=== PATIENT | female | born 1960 | race Caucasian/White ===

== ENCOUNTER 2020-11-01 09:05 | Inpatient (IN) | payer OTHER ==
[~2020-11-01] VITALS: Ht 162.6 cm; Wt 85.0 kg
[2020-11-01] VITALS (7 sets, daily range): BP systolic 114–124; BP diastolic 62–72
[~2020-11-01 09:05] MED LIST: ASA81BEC PO; ATORVASTATIN CA10 MG PO; CARVEDILOL25 MG PO; CLOPIDOGREL75 MG PO; DEXCOM G61 EAC2 SUBQ; FISH OIL 1,0001 EAC9 PO; FLONASE 0.05%50 MCG NARES; GABAPENTIN600 M1 PO; HUMALOG MI100 UNIT/6 SUBQ; LASIX 40 MG TAB40 MG PO; LISINOPRIL10 MG PO; MELATONIN10 M1 PO; METFORMIN HCL500 M3 PO; MIRALAX119 GM PO; MULTI VITAMIN1 EACH PO; OCUVITE TABLET1 EAC1 PO; OXYBUTYNIN 5 MG5 M2 PO; OXYCODON-ACETA1 EAC1 PO; POTASSIUM CHLO20 ME2 PO; SENNOSIDES-DOC1 EACH PO; ZOFRAN4 MG PO
[2020-11-01 11:29] LABS: CALCIUM 10.3 mg/dL (8.5-10.1); POTASSIUM 5.3 mmol/L (3.5-5.1)
--- NOTE | 2020-11-01 20:39 | NUR ---
Admitted from OR, s/p R foot and ankle contracture release. Admission assessment, history and education done. On room air. Vital signs stable. On carb controlled diet; tolerating well; no nausea, no vomiting and no abdominal pain noted. On MS, not on telemetry; no complains and signs of chest pain, crushing sensation and heaviness. Assisted in ADLs. On blood sugar monitoring, taken and recorded accordingly, pt has implanted blood sugar monitoring machine- informed her that we still have to do finger stick, will obtain orders from physician if able to use her own machine; insulin not included in inpatient meds- Dr Cano informed. With SL at R FA. Dressing/cast at R foot- C/D/I; NVS intact; kept elevated; SCDs on, ice pack in place. Med rec done- Dr Cano informed to review and aware re: consult for med management. Complained of pain, due PRN pain meds given as prescribed. To continue monitoring patient.
[2020-11-02 03:15] VITALS: BP 140/76
--- NOTE | 2020-11-02 04:19 | NUR ---
ASSUMED PT CARE AT 1900.PT C/O PAIN ON HER R FOOT,MANAGED WITH MED.CAST TO HER R FOOT C/D/I.PT WAS UPSET AT [facility] SHE DID NOT GET HER INSULIN AT THE TIME SHE CALLED OUT FOR IT.PT WAS NOTIFIED THAT THE NURSE WAS WITH ANOTHER PT AT THAT TIME.R FOOT ELEVATED WITH A PILLOW.CALL LIGHT WITHIN REACH.
[2020-11-02 05:24] LABS: HEMATOCRIT 30.1 % (37.0-47.0); HEMOGLOBIN 9.8 gm/dL (12.0-15.0)
[2020-11-02 05:35] LABS: POTASSIUM 5.2 mmol/L (3.5-5.1)
[2020-11-02 08:00] VITALS: BP 121/58
--- NOTE | 2020-11-02 13:17 | NUR ---
ASSESSMENT: CM REVIEWED CHART AND SPOKE WITH PATIENT. PT WAS ADMITTED DUE TO RIGHT ACHILLES LENGTHENING. PT REPORTS LIVING IN A SMALL COTTAGE HOME ALONE. PT REPORTS ONE STEP TO ENTER AND NO STEPS SHE HAS TO USE INSIDE. PT REPORTS HER HOME IS VERY SMALL AND EASY FOR HER TO ACCESS EVERYTHING. PT STATES SHE HAS A FOUR WHEEL WALKER AT HOME AND A STOOL RISER. PT REPORTS HAVING A SHOWER CHAIR AND GRAB BAR. PT STATES SHE IS IN SERVICE WITH [facility] ([phone]). CM NOTIFIED THEM OF PTS ADMISSION AND SENT REFERRAL TO THEM FAX: [phone]. PT REPORTS SHE HAS BEEN TO SNF IN THE PAST IN [place] AT [facility] SHE REPORTS. CM WILL CONTINUE TO FOLLOW. PT IS TO WORK WITH THERAPIES.
--- NOTE | 2020-11-02 14:56 | NUR ---
ASSUMED PT CARE THIS AM. PT VSS, A&OX4. PT COMPLAINS OF PAIN IN THE RIGHT FOOT. FOOT IS ELEVATED, RESPONDING WELL TO PAIN MEDS GIVEN PER EMAR. IV PATENT. MEDS TAKEN WELL THIS AM. PT CALLS APPROPRIATELY WHEN NEEDED. FALL PRECAUTIONS ARE IN PLACE.
--- NOTE | 2020-11-02 16:08 | NUR ---
PATIENT REPORTED A PREVIOUS ADVERSE DRUG REACTION TO FENTANYL, WHICH CAUSED HER TO STOP BREATHING. REPORTED THIS TO THE PHYSICIAN, AND ORDER FOR MEDICATION DISCONTINUED. ADDED TO PATIENT DRUG ALLERGIES.
[2020-11-02 16:15] VITALS: BP 138/58
[2020-11-02 19:24] VITALS: BP 199/94
[2020-11-03 00:31] VITALS: BP 170/81
[2020-11-03 01:06] LABS: GLYCOHEMOGLOBIN (HGB A1C) 6.6 % (4.8-5.6)
[2020-11-03 03:40] VITALS: BP 193/94
[2020-11-03 04:19] VITALS: BP 185/85
--- NOTE | 2020-11-03 04:21 | NUR ---
PT C/O NAUSEA AT START OF SHIFT.PT HAD EMESIS X1 AT THE TIME,PRN ZOFRAN GIVEN EFFCETIVE.AT APPROX 0315 PT STARTED HAVING EMESIS AGAIN WAS A LITTLE REDDISH IN COLOR,LESS THAT 100CC LOOKS LIKE SHE ATE JELLO.PT STATED THAT SINCE SHE HAD [employer] YESTERDAY SHE HAS BEEN HAVING UPSET STOMACH.PT'S VS OBTAINED,BP WAS ELEVATED.CLINICAL RESEARCH ASSOCIATE ON DUTY NOTIFIED ORDER NOTED FOR HYDRALAZINE AND CBC.PRN ZOFRAN GIVEN AGAIN.PT HAD AN EPISODE OF INCONTINENCE,CELINE CARE WITH BED CHANGE DONE.PT RESTING ON HER BED AT THIS TIME.CAST ON HER L FOOT INTACT,ELEVATED WITH A PILLOW.PT'S BG AT HS WAS 140,PT REF HER INSULIN.CALL LIGHT WITHIIN REACH.
[2020-11-03 05:38] LABS: HEMATOCRIT 30.8 % (37.0-47.0); HEMOGLOBIN 10.3 gm/dL (12.0-15.0); MCH 28.7 pg (26.0-34.0); MCHC 33.4 g/dL (28.0-37.0); MCV 86.2 fL (80.0-100.0); RBC 3.58 mil/uL (4.20-5.00); RDW 13.8 % (10.5-14.5); WBC 6.6 thou/uL (4.0-11.0)
--- NOTE | 2020-11-03 07:29 | NUR ---
ASSUMED CARE OF PATIENT SHE IS SLEEPING NO S/S PAIN OR RESP DISTRESS.
[2020-11-03 07:40] VITALS: BP 179/84
--- NOTE | 2020-11-03 16:03 | NUR ---
ON-GOING ASSESSMENT: CM REVIEWED CHART AND DISCUSSED WITH PATIENT RECOMMENDATION FOR SNF. 5N STATING PT IS MORE APPROPRIATE FOR SNF. CM DISCUSSED DIFFERENT SNF OPTIONS WITH PATIENT AND IF SHE IS WANTING ONE CLOSER TO HOME OR [place] OR NEAR THE HOSPITAL. PT STATES SHE DOES NOT REALLY HAVE A PREFERENCE AND WANTED TO ASK HER BROTHER. CM SPOKE WITH PATIENT BROTHER WHO REPORTS HE WOULD RATHER HAVE HERE SOMEWHERE IN CLOSE PROXIMETY TO THE HOSPITAL SO SHE CAN EASILY MAKE HER FOLLOW UP APPOINTMENTS. PT HAS NO PREFERENCE AND STATED SHE WANTED TO TRY [facility] SINCE IT IS ACROSS THE [address]RE[address]. KARLI SENT REFERRAL AND SPOKE WITH [facility] WHO REPORTS THEY WILL NOT HAVE A BED UNTIL FRIDAY. KARLI DISCUSSED THIS WITH PATIENT AND SHE REQUEST A REFERRAL TO [facility]. [facility] REVIEWING. CM FAXED NEGATIVE COVID TEST.
--- NOTE | 2020-11-03 16:16 | NUR ---
ON-GOING ASSESSMENT: [facility] KANDY LIAM[facility]LIN STATING THEY CAN ACCEPT PATIENT. DISCHARGE SUMMARY IS PREPPED FOR TOMORROW DATE 01/02/21. CM NOTIFIED [facility] AND FAXED D/C SUMMARY AND ORDERS. IF PATIENT IS STABLE TO LEAVE TOMORROW CONTACT THE [facility] LUIS AT [phone] TO FACILITATE THE DISCHAREG AND SHE WILL ARRANGE TRANSPORTATION. CONFIRM THEY DO NOT NEED NEW ORDERS. CHART COPY WILL NEED TO BE SENT WITH PATIENT. CM ALREADY FAXED NEGATIVE COVID RESULT AND NOTIFIED PATIENT OF LIKELY DISCHARGE TOMORROW TO [facility]. CONTACT PATIENTS BROTHER VLADISLAV TO NOTIFY HIM AT [phone].
[2020-11-03 16:30] VITALS: BP 126/66
[2020-11-03 20:10] VITALS: BP 127/60
--- NOTE | 2020-11-04 01:09 | NUR ---
PT WAS IN A BETTER MOOD AT START OF SHIFT.PT DENIED PAIN,N/V.CAST TO HER R FOOT STILL INTACT.PT ABLE TO WIGGLE TOESON HER FOOT.FOOT ELVATED WITH A PILLOW,ICE PACK IN PLACE.PT REFUSED TO TAKE HER HS INSULIN FOR FEAR OF LOW BG. PT LOOKING FORWARD TO BE DC'D LATER IN THE DAY.CALL LIGHT WITHIN REACH.
[2020-11-04 03:20] VITALS: BP 152/73
[2020-11-04 03:35] VITALS: BP 136/71
[2020-11-04 09:37] VITALS: BP 178/91
[2020-11-04 09:49] LABS: ABSOLUTE NEUTROPHILS 3.7 thou/uL (1.4-8.2); BASOPHILS 1.2 % (0.0-2.0); HEMATOCRIT 31.6 % (37.0-47.0); HEMOGLOBIN 10.4 gm/dL (12.0-15.0); LYMPHOCYTES 17.7 % (24.0-44.0); MCH 28.6 pg (26.0-34.0); MCV 86.8 fL (80.0-100.0); PLATELET COUNT 219 thou/uL (150-400); POLYS 70.1 % (36.0-66.0); RBC 3.64 mil/uL (4.20-5.00); RDW 13.7 % (10.5-14.5); WBC 5.2 thou/uL (4.0-11.0)
[2020-11-04 10:07] LABS: ALBUMIN 3.2 g/dL (3.4-5.0); CALCIUM 9.2 mg/dL (8.5-10.1); CREATININE 0.8 mg/dL (0.6-1.0); MAGNESIUM 1.8 mg/dL (1.8-2.4); TOTAL BILIRUBIN 0.4 mg/dL (0.2-1.0); TOTAL PROTEIN 6.8 g/dL (6.4-8.2)
--- NOTE | 2020-11-04 12:34 | NUR ---
clarissa notified by bedside nurse that bop say pt has to much going to accept pt today. clarissa called sam [phone] " don spoke with nurse receiving report and said had temp 99 and no bm in 5 day. if cont to have bm and to temp will take her tomorrow"/sam. call sam to set up dc on friday and notify brother of dc.
[2020-11-04 18:29] VITALS: BP 164/77
[2020-11-04 20:05] VITALS: BP 120/66
--- NOTE | 2020-11-05 02:32 | NUR ---
ASSESSED AT START OF SHIFT. PT A&OX4. DENIES PAIN ON ASSESSMENT. RT FOOT HARD CAST INTACT. BSG CHECKED AND INSULIN GIVEN. NIGHT TIME SNACK PROVIDED. PT HAD A HUGE BM DURING THE DAY. AFEBRILE. NIGHT MEDS GIVEN AND PT BRENDA IT WELL. FALL PREC IN PLACE AND CALL LIGHT AT REACH WILL CONT TO MONITOR.
[2020-11-05 04:52] VITALS: BP 153/74
[2020-11-05 05:50] LABS: URINE BILIRUBIN NEGATIVE (Negative); URINE BLOOD NEGATIVE (Negative); URINE CLARITY CLEAR; URINE COLOR YELLOW; URINE GLUCOSE-RANDOM* NEGATIVE (Negative); URINE KETONES NEGATIVE (Negative); URINE LEUKOCYTES-REFLEX 2+ (Negative); URINE NITRITE-REFLEX NEGATIVE (Negative); URINE PROTEIN (DIPSTICK) NEGATIVE (Negative); URINE UROBILINOGEN 0.2 E.U./dl (0.2-1.0)
[2020-11-05 06:01] LABS: BACTERIA-REFLEX None Seen /HPF (None Seen); CASTS None Seen /LPF (None Seen); SQUAMOUS 0-3 Few /LPF (0-3); URINE WBC-REFLEX 6-15 Few /HPF (0-5)
[2020-11-05 06:02] LABS: CALCIUM OXALATE 0-3 Few /LPF (None Seen); URINE RBC 0-2 Rare /HPF (0-2)
[2020-11-05 07:25] VITALS: BP 156/81
--- NOTE | 2020-11-05 12:37 | NUR ---
PT CARE ASSUMED AT 0700. A&Ox4. PT HAD VERY LARGE BM. HARD CAST ON R.LEG. CIRCULATION PRESENT ON TOES. IV ABX STARTED FOR UTI. ACHS WITH LOW MODERATE SLIDING SCALE. MEDICATION LIST UPDATED WITH DR. BARROW WITH CURRENT MEDICATION LIST PATIENT PROVIDED TODAY. PT DISCHARGE ON HOLD UNTIL URINE CULTURE COMES BACK TO CHANGE FROM IV ABX TO PO. CLEARED FROM ORTHO STANDPOINT TO DC. PT CONTINUES TO STAY AFEBRILE AND NO EMESIS PRESENT. BATH GIVEN. NO COMPLAINTS OF PAIN JUST "DISCOMFORT". FALL PROTOCOL IN PLACE. CALL LIGHT IN REACH. WILL CONTINUE TO MONITOR.
[2020-11-05 16:15] VITALS: BP 173/87
[2020-11-05 20:00] VITALS: BP 95/51
[2020-11-05 23:25] LABS: HEMATOCRIT 30.5 % (37.0-47.0); HEMOGLOBIN 10.1 gm/dL (12.0-15.0); MCH 28.9 pg (26.0-34.0); MCHC 33.1 g/dL (28.0-37.0); MCV 87.2 fL (80.0-100.0); RBC 3.5 mil/uL (4.20-5.00); RDW 14.2 % (10.5-14.5); WBC 4.8 thou/uL (4.0-11.0)
[2020-11-05 23:44] LABS: ALBUMIN 3.1 g/dL (3.4-5.0); CALCIUM 9.2 mg/dL (8.5-10.1); CREATININE 0.9 mg/dL (0.6-1.0); POTASSIUM 3.6 mmol/L (3.5-5.1); TOTAL BILIRUBIN 0.2 mg/dL (0.2-1.0); TOTAL PROTEIN 6.4 g/dL (6.4-8.2)
[2020-11-06] VITALS (7 sets, daily range): BP systolic 127–209; BP diastolic 59–96
--- NOTE | 2020-11-06 01:16 | NUR ---
PLANING MACHINE OPERATOR CALLED FOR DECREASED LOC. SEE PLANING MACHINE OPERATOR FLOWSHEET.
--- NOTE | 2020-11-06 02:28 | NUR ---
UPON START OF SHIFT, PT NOTED TO BE AOX4, DENYING PAIN AND SOB AT REST ON ROOM AIR. PT NOTIFIED STAFF FOR TOILETING, PT VOIDED PER BEDPAN. PT NOTED TO ASSIST WITH SHIFTING. PT TOLERATING PO INTAKE WITHOUT ISSUE, NO NAUSEA OR EMESIS NOTED. APPROX 2300, ENTERED PT ROOM, PT NOT RESPONDING TO VERBAL STIMULI. PT NOT RESPONDING TO TACTILE STIMULATION OR STERNAL RUBBING. RAPID RESPONSE INTIATED. PT OPENING EYES WITH FIXED GAZE, INABILITY TO TRACK OR FOLLOW COMMANDS. NIH OF 21. NARCAN GIVEN. LABS DRAWN, CT COMPLETED. PT BACK TO UNIT APPROX 2354, NIH OF 14. NOTIFIED PT BROTHER, DISCUSSED PT CURRENT HEALTH STATUS AND PLAN OF CARE. PT NOTABLY TEARFUL. PROVIDED EMOTIONAL SUPPORT, PT RECEPTIVE AND CONSOLABLE. AT 0019, PT TRANSFERRED TO ROOM 201, REPORT GIVEN TO DESHAWN MUÑOZ AT BEDSIDE.
--- NOTE | 2020-11-06 08:09 | NUR ---
TRANSFER FROM 4S TO UNIT AT 0019; ALERT & ORIENTED WITH SOME SLURRED SPEECH; NIH SCORE 4; BP ELEVATED WITH PRN MED ADMINISTERED; WILL CONTINUE TO MONITOR AND FOLLOW POC.
--- NOTE | 2020-11-06 13:25 | NUR ---
TENATIVE PLAN FOR DISCHARGE TODAY HOWEVER CONSULT FOR NEUROLOGY DUE TO AMS. UPDATED [facility] AND PATIENT. SHE REPORTS HER BROTHER IS AWARE.
--- NOTE | 2020-11-06 18:02 | NUR ---
PT HAS BEEN IRRITATED AND ANXIOUS THIS SHIFT. STATING SHE WANTS TO JUST GET OUT OF HERE AND THAT NO ONE HAS EXPLAIN ANYTHING TO HER AND THAT SHE VOICES CONCERNS SHE DID NOT SIGN CONSENT FOR FOR HER PROCEDURE ON HER R FOOT. THIS NURSE AND DR MCNAMARA EXPLAINED ALL MEDICATIONS TO PATIENT ALONG WITH PLAN AND PT WAS ABLE TO VISULIZE CONSENT FORM SHE SIGNED PREOP. PT HAS BEEN MORE COOPERATIVE AND PLEASANT THIS EVENING. NO NEW SIGNS OF WEAKNESS OR CONFUSES AT THIS TIME NIH SCORE 3 WHICH IS PTS BASE LINE. NO CONERNS AT THIS TIME FROM PT. WILL CONT TO MONITOR, CALL LIGHT IN REACH AND REFRESHMENTS PROVIDED.
--- NOTE | 2020-11-07 04:29 | NUR ---
ASSUMED CARE OF THE PATIENT AT CHANGE OF SHIFT; SR ON THE MONITOR; PATIENT ALERT AND LAYING BED; IRRITABLE, DROWSY, AND ANXIOUS AT TIMES; SPENT EXTRA TIME WITH PATIENT WITH GOOD RESULTS; RT LE HARD CAST IN PLACE AND LEG ELEVATED WITH PILLOW AND BED; RT FA IV INFILTRATED AND A NEW ONE WAS SUCCESSFULLY PLACED ABOVE PREVIOUS ONE FOR IV ABX ADMINISTRATION; RA WITH 02 SATS WITHIN NORMAL REFERENCE RANGE; BG ACHS WITH MODERATE DOSE SLIDING SCALE WITH INSULIN ADMINISTERED FOR 2100 HR; PLAN IS FOR PATIENT TO D/C TO SNF/REHAB TODAY; WILL CONTINUE TO MONITOR AND FOLLOW POC.
[2020-11-07 04:45] VITALS: BP 132/64
[2020-11-07 07:25] VITALS: BP 145/66
[2020-11-07 11:06] VITALS: BP 143/64
--- NOTE | 2020-11-07 13:20 | O ---
[facility] [place] [address] OPERATIVE REPORT Name: GREG TORREZ Room #: 201-P [facility] IN M.R.#: [id number] Admission: 11/01/20 Attend Phys: Cristian Hartman MD Discharge: Date of : 64 Report #: [id number] THIS REPORT FOR: cc: FAM - No family physician/PCP FAM - No family physician/PCP Cristian Hartman MD ~ DATE OF SERVICE: 11/01/2020 PREOPERATIVE DIAGNOSIS: Right Achilles and foot contractures. POSTOPERATIVE DIAGNOSIS: Right Achilles and foot contractures. PROCEDURES: 1. Right Achilles tendon percutaneous lengthening. 2. Right posterior tibialis tendon release. 3. Right flexor digitorum longus tendon release. SURGEON: Dr. Cristian Hartman. LINING STRAP CLOSER: Polly Freeman. ANESTHESIA: General. ESTIMATED BLOOD LOSS: Minimal. DRAINS: No drains. TOURNIQUET TIME: 20 minutes. DESCRIPTION OF PROCEDURE: The patient brought to the operating room where she was placed under general anesthesia. Once under adequate general anesthesia, her right lower extremity was prepped and draped in sterile manner. The extremity was elevated, exsanguinated, tourniquet placed 300 mmHg. A step cut Achilles tendon lengthening was made with a 15 blade percutaneously, first directed laterally and then directed medially and then subsequently directed laterally once again in 1.5 cm increments. Once released, the ankle contracture did release considerably. However, there was still an inversion and flexion contracture. This was then released through a small 2-cm incision. Dissection was carried down to the posterior tibial tendon sheath. The posterior tibial tendon was then incised with tenotomy scissors, releasing this. The floor of the posterior tibial tendon sheath was then opened exposing the flexor digitorum longus tendon. This was released as well completing the hindfoot release. We were able then to reduce the ankle to a neutral alignment once complete. The wounds were then irrigated copiously and closed with 2-0 Vicryl in the subcutaneous tissues and emily were used for the skin. The wounds were [address] [address] OPERATIVE REPORT Name: GREG TORREZ Room #: 201-P [facility] IN M.R.#: [id number] Admission: 11/01/20 Attend Phys: Cristian Hartman MD Discharge: Date of : 64 Report #: [id number] dressed with Xeroform, 4 x 4s, and sterile soft compressive dressing was placed. Tourniquet was let down at approximately 20 minutes. Toes were pink and warm with good capillary refill. There were no complications from the procedure. The patient tolerated the procedure well and was taken to recovery room without incident. <ELECTRONICALLY SIGNED> By: Cristain Hartman MD 11/07/20 1320 1217 1229 Cristian Hartman MD /nt
--- NOTE | 2020-11-07 14:30 | NUR ---
PT REFUSES ABX AND SAM D/T HER THINKING SHE WOULD BE DISCHARGED AND AT SKILLED FACILITY. COVID TEST STILL PRENDING AND HOLDING UP DISCHARGE. PT HAS HAS NO BEHAVIORS TODAY AND HAS BEEN COOPERATIVE WITH [facility]JOR[facility] OF CARES. PT STABLE AT THIS TIME AND NO NEW ISSUES. CALL LIGHT IN REACH AND PT HAS NO CONCERNS BESIDES DISCHARGE
[2020-11-07 15:42] VITALS: BP 125/61
--- NOTE | 2020-11-07 16:40 | NUR ---
FAXED CLINICAL UPDATE TO [facility] OF OP RECEIVED CONFIRMATION AND LEFT MSG WITH ARAMIS IN ADM.
--- NOTE | 2020-11-07 16:55 | NUR ---
Tenative plan to discharge to [facility] skilled today. Patient covid test negative. sp with Krystian they are at [facility]. Updated phys. Updated patient. She has apt with Dr Hager tomorrow for f/u post apt. Called and sp with Kathy at [place] office to determine if can see at hospical. Kathy reports they are booked and wants to change apt. Placed Kathy on speaker phone in patient room. New apt for 11/09/20 at 2:45 [address] [facility]. Gave info to RN to place in dc instructions.
[2020-11-07 20:15] VITALS: BP 156/67
--- NOTE | 2020-11-08 05:05 | NUR ---
ASSUMED CARE OF THE PATIENT AT CHANGE OF SHIFT; ALERT/ORIENTED AND TALKATIVE; SR ON THE MONITOR; BG ACHS WITH MODERATE DOSE SS REQUIRED COVERAGE; PT CONTINUES TO RECEIVE IV ABX; PLAN IS FOR PATIENT TO D/C TO [facility] BED/ROOM/COVID TEST RESULTED (SEE REVIEW); WILL CONTINUE TO MONITOR AND FOLLOW POC.
[2020-11-08 05:45] VITALS: BP 162/79
[2020-11-08 07:23] VITALS: BP 179/69
[2020-11-08 08:50] VITALS: BP 176/69
--- NOTE | 2020-11-08 09:01 | NUR ---
ASSUMED CARE OF PT AT 0700. PT RESTING, PT PLACED ON BEDPAIN TO URINATE. ASSESSMENT PERFORMED. ASSESSMENT UNCHANGED. PT IS PLEASANT AT THIS TIME. PT STATES IF SHE IS NOT GOING TO [facility] TODAY SHE WILL BE GOING TO [place]. VSS. WILL CONTINUE TO MONITOR.
--- NOTE | 2020-11-08 10:34 | NUR ---
REPORT GIVEN TO LATRELL BONDS LPN. PT NOTIFIED OF D/C WITHIN THE HOUR. WILL CONTINUE TO MONITOR.
--- NOTE | 2020-11-08 12:02 | NUR ---
PT D/C VIA WHEELCHAIR TO [place]. PT ALERT AND ORIENTED X4. PT DENIES PAIN. PT TRANSFERRED TO WHEELCHAIR VIA STAND AND PIVOT.
--- NOTE | 2020-11-08 12:50 | NUR ---
PT DISCHARGING TODAY TO [facility] OF OP FAXED DC ORDERS/SUMMARY TO FACILITY SPOKE WITH GREER IN ADM SHE RECEIVED ORDERS. TRANSPORT ARRANGED WC VAN AT 1100 FAMILY NOTIFIED BY SW UNIT NOTIFIED AND CHART COPY PER US. RN TO CALL REPORT TO [phone].
== END 2020-11-08 12:06 | DRG 500 ==
LOC: OR 09:05 → TBA 09:49 → 4S 09:49 → OR 15:29 → EDSTATUS 15:30 → 4S 15:44 → 2N 11-06 00:21
PROVIDERS: Internal Medicine; Nurse Practitioner Family; ADMIT Orthopaedic Surgery Foot and Ankle Surgery; ATTEND Orthopaedic Surgery Foot and Ankle Surgery
PROC: 0L8N3ZZ Division of Right Lower Leg Tendon, Percutaneous Approach (ICD-10-PCS; principal; 2020-11-01)
PROC: 0LNN3ZZ Release Right Lower Leg Tendon, Percutaneous Approach (ICD-10-PCS; principal; 2020-11-01)
DX: M24.574 Contracture, right foot (principal); G92 Toxic encephalopathy; N39.0 Urinary tract infection, site not specified; I50.9 Heart failure, unspecified; Z20.822 Contact with and (suspected) exposure to COVID-19; E78.5 Hyperlipidemia, unspecified; G62.9 Polyneuropathy, unspecified; K59.00 Constipation, unspecified; M24.571 Contracture, right ankle; E86.0 Dehydration; I25.10 Atherosclerotic heart disease of native coronary artery without angina pectoris; Z95.5 Presence of coronary angioplasty implant and graft; Z82.49 Family history of ischemic heart disease and other diseases of the circulatory system; Z86.73 Personal history of transient ischemic attack (TIA), and cerebral infarction without residual deficits; Z83.3 Family history of diabetes mellitus; Z88.6 Allergy status to analgesic agent; Z88.8 Allergy status to other drugs, medicaments and biological substances; Z79.82 Long term (current) use of aspirin; Z79.899 Other long term (current) drug therapy
CPT/HCPCS: 10081; 10102; 50010; 50101; 50386; 51412; 56524; 57091; 57180; 62110; 62900; 70005